=== PATIENT | female | born 1940 | race Caucasian/White ===

== ENCOUNTER → 2019-04-13 13:58 | Outpatient (CLI) | payer MEDICARE, OTHER | END | disposition home or self-care (01) | LOC: D.MRI 13:58 | PROVIDERS: ATTEND Orthopaedic Surgery | DX: M48.02 Spinal stenosis, cervical region (principal) ==

== ENCOUNTER 2021-02-11 13:30 | Outpatient (CLI) | payer MEDICARE, OTHER | END 2021-02-11 23:59 | disposition home or self-care (01) | LOC: D.MAMMO 13:30 | PROVIDERS: ATTEND Emergency Medicine | DX: N63.21 Unspecified lump in the left breast, upper outer quadrant (principal); N63.13 Unspecified lump in the right breast, lower outer quadrant ==

== ENCOUNTER → 2021-02-20 08:00 | Outpatient (CLI) | payer MEDICARE, OTHER | END | disposition home or self-care (01) | LOC: D.MAMMO 08:00 → D.US 08:00 | PROVIDERS: ATTEND Emergency Medicine | DX: R92.8 Other abnormal and inconclusive findings on diagnostic imaging of breast (principal) ==

== ENCOUNTER 2021-03-17 05:55 | Day surgery (SDC) | payer MEDICARE, OTHER ==
[2021-03-16 10:44] LABS: BASOPHILS 0.4 % (0-2); EOSINOPHILS 4.4 % (0-7); HEMATOCRIT 41.2 % (36.0-48.0); HEMOGLOBIN 13.3 g/dL (12-16); IMMATURE GRANULOCYTES 0.3 % (0-5); LYMPHOCYTES 19.1 % (15-50); MCH 28.7 pg (26.0-34.0); MCHC 32.3 g/dL (31.0-37.0); MONOCYTES 10.5 % (2-11); NEUTROPHIL ABS# 7.54 10x3/uL (1.56-6.13); NEUTROPHILS 65.3 % (40-80); PLATELET COUNT 244 10x3/uL (130-400); RBC 4.63 10x6/uL (4.00-5.40); RDW 13.8 % (11.5-14.5); WBC 11.5 10x3/uL (4.8-10.8)
[2021-03-16 10:50] LABS: ANION GAP 8.7 mmol/L (8-16); CALCIUM 9.5 mg/dL (8.5-10.1); CARBON DIOXIDE 31.9 mmol/L (21.0-32.0); CREATININE - SERUM 1.1 mg/dL (0.6-1.3); POTASSIUM - SERUM 3.6 mmol/L (3.5-5.1)
[2021-03-16 10:53] LABS: APTT 29.3 SECONDS (22.8-39.4); INR 1.01 (0.85-1.17); PROTIME 12.3 SECONDS (11.6-15.0)
[~2021-03-17] VITALS: Ht 170.2 cm; Wt 98.6 kg
--- NOTE | ~2021-03-17 | OP ---
PATIENT NAME: LINDA MONTEMAYOR MEDICAL RECORD: [id number] :38 LOCATION:[facility] ADMISSION DATE: SURGEON: MARTY MYERS MD DATE OF OPERATION: 03/17/2021 PREOPERATIVE DIAGNOSES: 1. Left breast cancer. 2. Hypertension. 3. Hypercholesterolemia. 4. Asthma. POSTOPERATIVE DIAGNOSES: 1. Left breast cancer. 2. Hypertension. 3. Hypercholesterolemia. 4. Asthma. PROCEDURE: 1. Needle localized left lumpectomy. 2. Left axillary sentinel lymph node biopsy. SURGEON: Marty Myers MD DESCRIPTION OF PROCEDURE: The patient preoperatively underwent a lymphoscintigraphy showing uptake in the left axilla and also needle localization of the two cancerous lesions in the left upper breast. The patient was taken to the operating room where the breast and axilla were prepped and draped in sterile fashion. I was able to find an area in the axilla where we had a high reading. A total of 25 mL of 0.25% Marcaine with epinephrine was infused into the area around the axilla and the left upper outer breast. A transverse incision was made in the inferior aspect of the left axilla and electrocautery was used to dissect through the subcutaneous tissues and fascia until we entered the axillary space. I was able to feel some lymph nodes and as I pulled these out, I was able to find a lymph node with a reading of 2300. Using the Neoprobe, we located this lymph node and eventually removed this lymph node using medium size clips. Once the lymph node was out, then we inspected the rest of the axilla and saw no evidence of any further sentinel lymph node tissue. The wound was irrigated out with sterile water and the subcutaneous tissues were reapproximated with interrupted 3-0 Vicryl. We then made a transverse incision on the left upper breast between the 2 wires exit sites. Electrocautery was used to dissect through the subcutaneous tissues and we took a large core of tissue around the [address] down to the pectoral fascia. Once we had this completely excised, then it was marked appropriately and sent off for permanent specimen. We irrigated out the wound bed with sterile water and any bleeding was treated with electrocautery. The subcutaneous tissues were reapproximated with multiple interrupted 3-0 Vicryls and the skin was closed with running subcutaneous 5-0 Monocryl. COMPLICATIONS: None. CONDITION: Stable. ANESTHESIA: Local and TIVA. BLOOD LOSS: 30 mL. OPERATIVE REPORT [id number] SIM,LINDA TRANSINT:[id number] Voice Confirmation ID: [id number] DOCUMENT ID: [id number] MARTY MYERS MD CC: NATALIA SWENSON [id number] DICTATION DATE: 03/17/21 1151 [employer] WORKER: 03/17/21 1551 [facility] [place] 03/17/21 [place] [id number]
[~2021-03-17 05:55] MED LIST: ALBUTEROL0.63 MG/3; LISINOPRIL-HCT1 EAC8 PO; LOVASTATIN40 MG PO; NORVASC5 MG PO; OXYBUTYNIN CHLOR5 MG PO; SYMBICORT 16010.2 GM INH
[2021-03-17 06:20] VITALS: BP 135/72; Ht 170.2 cm; Wt 98.6 kg
[2021-03-17] MEDS ORDERED: HYDROCODON-ACE1 EAC7 PO (11:55)
== END 2021-03-17 13:27 | disposition home or self-care (01) ==
LOC: D.NM 05:55
PROVIDERS: Anesthesiology; ATTEND Surgery
DX: C50.912 Malignant neoplasm of unspecified site of left female breast (principal); I10 Essential (primary) hypertension; E78.00 Pure hypercholesterolemia, unspecified; J45.909 Unspecified asthma, uncomplicated